=== PATIENT | male | born 1990 | race Caucasian/White ===

== ENCOUNTER → 2020-09-29 15:18 | Outpatient (CLI) | payer BC, SELFPAY ==
--- NOTE | ~2020-09-29 | US_ITS ---
EXAMINATION: US scrotum doppler DATE: 09/29/2020 15:56 INDICATION: Left testicular pain TECHNIQUE: Testicular sonogram utilizing grayscale and Doppler COMPARISON: None. FINDINGS: The right testis measures 3.2 x 2.8 x 3.2 cm. The left testis measures 3.6 x 2.2 x 4 cm. Th ere is increased vascular flow to the left testicle compared to the right. The right epididymis is no rmal with normal vascular flow. The left epididymis contains a 4 mm cyst or spermatocele.. There is n o varicocele or hydrocele. IMPRESSION: 1. Increased vascularity of the left testicle compared to the right which could reflect orchitis. Reviewed, dictated and finalized at location A. CUTTER
== END ==
PROVIDERS: PCP Internal Medicine; Visit Provider Nurse Practitioner
DX: N50.812 Left testicular pain (principal)
CPT/HCPCS: 76870; 93976

== ENCOUNTER 2020-09-30 11:51 | Outpatient (CLI) | payer BC, SELFPAY ==
[2020-09-30 12:33] LABS: Basophils Percent Auto 0.7 % (0.2-1.2); Eosinophils Absolute Auto 0.1 K/mm3 (0-0.3); Eosinophils Percent Auto 1.3 % (0-4.4); Hematocrit 43.7 % (42.0-52.0); Hemoglobin 15.2 g/dL (14.0-18.0); Immature Granulocyte Absolute 0.02 K/mm3 (0.00-0.031); Immature Granulocyte Percent A 0.4 % (0-0.5); Lymphocytes Percent Auto 33.6 % (18.3-44.2); Mean Corpuscular HGB Conc 34.8 g/dl (32-36); Mean Corpuscular Hemoglobin 29.1 pg (26-34); Mean Corpuscular Volume 83.7 fl (80-100); Mean Platelet Volume 10.9 fl (7.4-10.4); Monocytes Absolute Auto 0.5 K/mm3 (0.1-0.6); Monocytes Percent Auto 10.1 % (2.6-8.5); Neutrophils Absolute Auto 2.9 K/mm3 (1.3-6.7); Neutrophils Percent Auto 53.9 % (45.5-73.1); Platelet Count Result 170 k/mm3 (150-375); Red Blood Count 5.22 M/mm3 (4.6-6.20); Red Cell Distribution Width 11.8 % (11.5-14.5); White Blood Count 5.4 K/mm3 (4.5-10.0)
[2020-09-30 12:48] LABS: Alanine Aminotransferase 24 U/L (4-50); Albumin Level 4.9 g/dL (3.5-5.1); Alkaline Phosphatase 69 U/L (38-126); Anion Gap 7 mmol/L (8-16); Aspartate Amino Transferase 31 U/L (17-59); Bilirubin,Total 0.8 mg/dL (0.2-1.3); Blood Urea Nitrogen 15 mg/dL (9-20); Calcium 9.8 mg/dL (8.4-10.2); Carbon Dioxide 33 mmol/L (22-30); Chloride 102 mmol/L (98-107); Cholesterol 135 mg/dL (0-200); Estimated Glomerular Filt Rate > 60; Glucose 95 mg/dL (75-110); HDL Direct 52 mg/dL; Potassium 4.3 mmol/L (3.4-5.0); Sodium 142 mmol/L (137-145); Triglycerides 56 mg/dL (<150)
[2020-09-30 12:59] LABS: LDL Cholesterol Direct 62 mg/dL
== END 2020-09-30 11:52 | disposition home or self-care (01) ==
PROVIDERS: PCP Internal Medicine; Visit Provider Nurse Practitioner
DX: Z13.228 Encounter for screening for other metabolic disorders (principal); Z13.220 Encounter for screening for lipoid disorders
CPT/HCPCS: 36415; 80053; 80061; 85025